=== PATIENT | male | born 1950 | race Caucasian/White ===

== ENCOUNTER → 2016-10-16 | Outpatient (CLI) | payer MEDICARE, BC ==
[2016-10-16 08:31] LABS: CHLORIDE,CL 109 mmol/L (98-110); SODIUM,NA 141 mmol/L (136-146)
== END ==
LOC: MW.CHFP 07:35
PROVIDERS: ATTEND Emergency Medicine
DX: I10 Essential (primary) hypertension (principal); E78.00 Pure hypercholesterolemia, unspecified; R73.9 Hyperglycemia, unspecified; Z23 Encounter for immunization
CPT/HCPCS: 36415; 80053; 80061; 83036; 90732; 99214; G0009

== ENCOUNTER 2020-10-26 11:53 | Day surgery (SDC) | payer OTHER, MEDICARE, BC ==
[~2020-10-26 11:53] MED LIST: Lactated Ringers 1,000 ML IV SCH
[2020-10-26] MEDS ORDERED: Midazolam 1 MG/ML 2 ML SDV ONE (12:44)
[2020-10-26] MEDS ORDERED: fentaNYL 100 MCG/2 ML SDV ONE (12:44)
[2020-10-26] MEDS ORDERED: Propofol 200 MG/20 ML SDV ONE ×2 (12:44→13:42)
--- NOTE | 2020-10-26 12:53 | PCM.PREANE ---
Preanesthetic Assessment - Anesthesia/Transfusion/Family Hx Anesthesia History: Prior Anesthesia Without Reaction Family History of Anesthesia Reaction: No Transfusion History: No Prior Transfusion(s) - Review of Systems General: No Symptoms Pulmonary: No Symptoms Cardiovascular: No Symptoms Gastrointestinal: No Symptoms Neurological: No Symptoms Other: Reports: None - Physical Assessment NPO Status Date: 10/25/20 NPO Status Time: 21:00 Vital Signs: Last Vital Signs Temp 36.5 C 10/26/20 12:22 Pulse 98 10/26/20 12:22 Resp 16 10/26/20 12:22 BP 139/86 10/26/20 12:22 Pulse Ox 97 10/26/20 12:22 Height: 1.65 m Weight: 86.183 kg ASA Class: 2 Mental Status: Alert & Oriented x3 Airway Class: Mallampati = 2 Dentition: Reports: Normal Dentition Thyro-Mental Finger Breadths: 3 Mouth Opening Finger Breadths: 3 ROM/Head Extension: Full Lungs: Clear to Auscultation, Normal Respiratory Effort Cardiovascular: Regular Rate, Regular Rhythm - Allergies Allergies/Adverse Reactions: Allergies Allergy/AdvReac Type Severity Reaction Status Date / Time Penicillins Allergy Rash Verified 10/26/20 12:20 - Acknowledgements Anesthesia Type Planned: MAC (The patient understands and accepts anesthetic risks and benefits of MAC. All questions. Consent signed. ) Pt an Appropriate Candidate for the Planned Anesthesia: Yes Alternatives and Risks of Anesthesia Discussed w Pt/Guardian: Yes Pt/Guardian Understands and Agrees with Anesthesia Plan: Yes PreAnesthesia Questionnaire HEENT History: Reports: Hard of Hearing, Impaired Vision Other HEENT History: wears glasses, has bilateral hearing aides Cardiovascular History: Reports: High Cholesterol, Hypertension Respiratory History: Reports: None Gastrointestinal History: Reports: Diverticulosis, GERD (controlled) Genitourinary History: Reports: None Musculoskeletal History: Reports: Fracture, Osteoarthritis Other Musculoskeletal History: hx of fx ankle Neurological History: Reports: None Psychiatric History: Reports: None Endocrine/Metabolic History: Reports: Obesity/BMI 30+ (bmi 31) Hematologic History: Reports: None Immunologic History: Reports: None Oncologic (Cancer) History: Reports: None Dermatologic History: Reports: None - Infectious Disease History Infectious Disease History: Reports: Other (See Below) (covid negative) - Past Surgical History Head Surgeries/Procedures: Reports: None HEENT Surgical History: Reports: None Cardiovascular Surgical History: Reports: None Respiratory Surgical History: Reports: None GI Surgical History: Reports: Appendectomy, Cholecystectomy, Colonoscopy Neurological Surgical History: Reports: Laminectomy, Lumbar Spine Musculoskeletal Surgical History: Reports: Knee Replacement Other Musculoskeletal Surgeries/Procedures:: bilateral TKA Dermatological Surgical History: Reports: None - History Comment History Comment: etoh 1x a month. - SUBSTANCE USE Tobacco Use Status *Q: Never Tobacco User Recreational Drug Use History: No - HOME MEDS Home Medications: Home Meds Aspirin 81 mg PO DAILY 03/12/16 [History] atorvaSTATin [Lipitor] 10 mg PO DAILY 03/12/16 [History] Esomeprazole Magnesium [Nexium 24Hr] 20 mg PO DAILY 10/20/20 [History] Folic Acid 0.4 mg PO DAILY 10/20/20 [History] Meloxicam 15 mg PO DAILY PRN 10/20/20 [History] hydroCHLOROthiazide [Hydrochlorothiazide] 12.5 mg PO DAILY 10/20/20 [History] lisinopriL [Lisinopril] 20 mg PO QAM 10/20/20 [History] - CURRENT (IN HOUSE) MEDS Current Meds: Current Medications Lactated Ringer's (Ringers, Lactated) 1,000 mls @ 125 mls/hr IV ASDIRECTED [facility] Last Admin: 10/26/20 12:20 Dose: 125 mls/hr Documented by:
--- NOTE | 2020-10-26 13:55 | PCM.OPNOTE ---
- General Post-Op/Procedure Note Date of Surgery/Procedure: 10/26/20 Operative Procedure(s): colonoscopy Findings: diverticulosis dictation number [id number] Pre Op Diagnosis: screening colonoscopy Post-Op Diagnosis: diverticulosis Primary Surgeon: Prosper Bowden Pathology: none Complications: None Condition: Good
--- NOTE | 2020-10-26 14:30 | PCM.POSTAN ---
POST ANESTHESIA ASSESSMENT - MENTAL STATUS Mental Status: Alert, Oriented - VITAL SIGNS Vital Signs: Last Vital Signs Temp 36.5 C 10/26/20 12:22 Pulse 82 10/26/20 14:15 Resp 12 10/26/20 14:15 BP 106/70 10/26/20 14:15 Pulse Ox 94 L 10/26/20 14:15 - RESPIRATORY Respiratory Status: Respiratory Rate WNL, Airway Patent, O2 Saturation Stable - CARDIOVASCULAR CV Status: Pulse Rate WNL - GASTROINTESTINAL GI Status: No Symptoms - PAIN Pain Score: 0 - POST OP HYDRATION Hydration Status: Adequate & Stable - OBSERVATIONS Free Text/Narrative:: The patient is awake, alert,and in no acute distress. There were no apparent an esthetic complications at this time.
--- NOTE | 2020-10-26 14:42 | PCM48HPAN ---
Post Anesthesia Note - EVALUATION WITHIN 48HRS OF ANESTHETIC Vital Signs in Normal Range: Yes Patient Participated in Evaluation: Yes Respiratory Function Stable: Yes Airway Patent: Yes Cardiovascular Function Stable: Yes Hydration Status Stable: Yes Pain Control Satisfactory: Yes Nausea and Vomiting Control Satisfactory: Yes Mental Status Recovered: Yes Vital Signs: Last Vital Signs Temp 36.5 C 10/26/20 12:22 Pulse 82 10/26/20 14:15 Resp 12 10/26/20 14:15 BP 106/70 10/26/20 14:15 Pulse Ox 94 L 10/26/20 14:15
[2020-10-26 15:03] VITALS: BP 123/83; PULSE 75
--- NOTE | 2020-10-26 17:35 | OR ---
SURGEON: CHECO QUEVEDO MD DATE OF PROCEDURE: 10/26/2020 PREOPERATIVE DIAGNOSIS: Screening colonoscopy. POSTOPERATIVE DIAGNOSIS: Diverticulosis. PROCEDURE PERFORMED: Colonoscopy. PRIMARY SURGEON: Checo Quevedo MD ANESTHESIA: With anesthesiologist. EXTENT OF COLONOSCOPY: To the cecum. WITHDRAWAL TIME: 7 minutes. LIMITATIONS: None. BOWEL PREP: Very good. REASON FOR PROCEDURE: The patient is a pleasant 69-year-old gentleman whose last colonoscopy was 10 years ago. The patient says this was normal. He denies any family history of colon cancer. He denies any blood in his stool. PROCEDURE IN DETAIL: Physical examination was performed. The major risks and benefits associated with the procedure were explained to the patient in detail. The patient verbalized understanding and agreement of the same. The patient was then connected to appropriate monitoring device and IV started. EKG, pulse, pulse oximetry, blood pressure, and capnography were monitored throughout the procedure. Continuous oxygen and sedation were provided by the anesthesiologist. He was placed in left lateral decubitus position. Sedation was began. After adequate sedation was achieved, digital rectal exam was performed. No rectal masses or polyps were felt, but he did have some residual external hemorrhoidal skin tissue. Now, a well-lubricated Olympus colonoscope was entered in the rectum and advanced under direct visualization to the level of the cecum. Cecum was identified by both visual and anatomic landmarks. Photographs were taken of the cecal cap. Scope was then slowly withdrawn in somewhat circular fashion looking at the color, texture, anatomy, and integrity of the mucosa from the cecum to the anal canal. The patient did have some light liquid stool, which was suctioned and irrigated out for good look of the mucosa. No polyps were seen. He did have some diverticulosis in the sigmoid colon. On retroflexion, he did have some noninflamed internal hemorrhoid. The scope was completely removed and procedure was terminated. ENDOSCOPIC DIAGNOSES: 1. Diverticulosis. 2. Hemorrhoids. RECOMMENDATIONS: Followup colonoscopy would put him at 10 years, however, this would be at age 78, which is beyond current standard for screening colonoscopy. The patient should discuss with his primary care provider at the time whether this is indicated with policies of the time. The patient will need one in the future if he does develop signs and symptoms such as change in bowel habits or blood in his stool. [place] / BRIAN /[id number]
== END 2020-10-26 14:46 | disposition home or self-care (01) ==
LOC: MW.SDS 11:53
PROVIDERS: ATTEND Surgery
DX: Z12.11 Encounter for screening for malignant neoplasm of colon (principal); K57.30 Diverticulosis of large intestine without perforation or abscess without bleeding; K64.8 Other hemorrhoids; I10 Essential (primary) hypertension; E78.00 Pure hypercholesterolemia, unspecified; E66.9 Obesity, unspecified; Z68.31 Body mass index [BMI] 31.0-31.9, adult; R73.9 Hyperglycemia, unspecified; Z88.0 Allergy status to penicillin; Z79.82 Long term (current) use of aspirin; Z79.899 Other long term (current) drug therapy; Z98.890 Other specified postprocedural states
CPT/HCPCS: 45378; J2250; J2704; J3010; J7120